=== PATIENT | female | born 1990 | race Caucasian/White ===

== ENCOUNTER 2020-05-20 18:26 | Outpatient (CLI) | payer OTHER ==
[~2020-05-20] VITALS: Ht 147.3 cm; Wt 64.0 kg
[2020-05-20 19:31] LABS: ALANINE AMINOTRANSFERASE 15 U/L (12-78); ALBUMIN 2.6 g/dL (3.4-5.0); ANION GAP 10 mmol/L (5-15); CALCIUM 8.5 mg/dL (8.5-10.1); CHLORIDE 108 mmol/L (98-107)
[2020-05-20 19:31] LABS: MICROSCOPIC INDICATED
[2020-05-20 19:34] LABS: ALKALINE PHOSPHATASE 194 U/L (45-117); BILIRUBIN,TOTAL 0.3 mg/dL (0.2-1.0); TOTAL PROTEIN 6.6 g/dL (6.4-8.2)
[2020-05-20 19:35] LABS: BILIRUBIN, DIRECT < 0.1 mg/dL (0.1-0.2)
[2020-05-20 19:36] LABS: CREATININE,URINE RANDOM 70.4 mg/dL
[2020-05-20 19:43] LABS: BASOPHILS % (AUTO) 0 % (0-1); EOSINOPHILS % (AUTO) 0 % (1-7); LYMPHOCYTES % (AUTO) 25 % (22-44); MEAN CORPUSCULAR HGB CONC 33.6 g/dL (32.4-35.8); MEAN PLATELET VOLUME 8.9 fL (7.4-10.4); MONOCYTES % (AUTO) 8 % (2-9); NEUTROPHILS % (AUTO) 66 % (42-75); PLATELET COUNT 266 x10^3/uL (130-400); RED BLOOD COUNT 3.96 x10^6/uL (3.82-5.3); RED CELL DISTRIBUTION WIDTH 14.7 % (9.6-15.2)
[2020-05-20 19:44] LABS: MD NO
== END 2020-05-20 20:05 | disposition home or self-care (01) ==
LOC: LDOP 18:26
PROVIDERS: ATTEND Obstetrics & Gynecology
DX: O16.3 Unspecified maternal hypertension, third trimester (principal); Z3A.36 36 weeks gestation of pregnancy
CPT/HCPCS: 36415; 59025; 80053; 81001; 82248; 82570; 84156; 84550; 85025

== ENCOUNTER 2020-05-26 03:15 | Outpatient (CLI) | payer OTHER ==
[2020-05-26 04:26] LABS: MICROSCOPIC INDICATED
[2020-05-26 04:36] LABS: BASOPHILS % (AUTO) 0 % (0-1); EOSINOPHILS % (AUTO) 0 % (1-7); LYMPHOCYTES % (AUTO) 30 % (22-44); MEAN CORPUSCULAR HEMOGLOBIN 26.8 pg (27.0-34.8); MEAN CORPUSCULAR HGB CONC 33.5 g/dL (32.4-35.8); MEAN PLATELET VOLUME 8.7 fL (7.4-10.4); MONOCYTES % (AUTO) 8 % (2-9); NEUTROPHILS % (AUTO) 62 % (42-75); PLATELET COUNT 244 x10^3/uL (130-400); RED BLOOD COUNT 3.91 x10^6/uL (3.82-5.3)
[2020-05-26 04:37] LABS: MD NO
[2020-05-26 04:46] LABS: ALANINE AMINOTRANSFERASE 13 U/L (12-78); ALBUMIN 2.4 g/dL (3.4-5.0); ANION GAP 10 mmol/L (5-15); BILIRUBIN, DIRECT 0.1 mg/dL (0.1-0.2); CHLORIDE 109 mmol/L (98-107); CREATININE 0.76 mg/dL (0.55-1.02)
[2020-05-26 04:48] LABS: ALKALINE PHOSPHATASE 193 U/L (45-117); BILIRUBIN,TOTAL 0.3 mg/dL (0.2-1.0); TOTAL PROTEIN 6.1 g/dL (6.4-8.2)
== END 2020-05-26 05:20 | disposition home or self-care (01) ==
LOC: LDOP 03:15
PROVIDERS: ATTEND Obstetrics & Gynecology
DX: O26.893 Other specified pregnancy related conditions, third trimester (principal); R10.9 Unspecified abdominal pain; Z3A.37 37 weeks gestation of pregnancy
CPT/HCPCS: 36415; 59025; 80053; 81001; 82248; 82570; 84156; 84550; 85025; 86850; 86900

== ENCOUNTER 2020-05-27 19:12 | Inpatient (IN) | payer OTHER ==
[~2020-05-27] VITALS: Ht 148.6 cm; Wt 67.0 kg
[2020-05-27] MEDS ORDERED: TERBUTALINE 1 MG/ML, 1ML SQ PRN (22:00)
[2020-05-27] MEDS ORDERED: FENTANYL PF 100 MCG/2ML IVPush PRN (22:00)
[2020-05-27] MEDS ORDERED: METOCLOPRAMIDE 5 MG/ML, 2ML IVPush PRN (22:00)
[2020-05-27] MEDS ORDERED: OXYTOCIN 30U/ 0.9% NaCL 500ML 500 ML IV ONE (22:00)
[2020-05-27] MEDS ORDERED: FENTANYL PF 100 MCG/2ML IV PRN (22:00)
[2020-05-27] MEDS ORDERED: TERBUTALINE 1 MG/ML, 1ML IVPush PRN (22:00)
[2020-05-27] MEDS ORDERED: ONDANSETRON 2MG/ML, 2ML IVPush PRN (22:00)
[2020-05-27] MEDS ORDERED: OXYTOCIN 30U/ 0.9% NaCL 500ML 500 ML IV PRN (22:00)
[2020-05-27] MEDS ORDERED: SODIUM CITRATE/CITRIC ACID 30 ML UDC PO PRN (22:00)
[2020-05-27] MEDS: D5%-LACTATED RINGERS 1,000 ML IV SCH (22:00)
[2020-05-27] MEDS: LACTATED RINGERS 1,000 ML IV SCH (22:15)
[2020-05-27] MEDS ORDERED: FENTANYL PF 100 MCG/2ML ONE (22:19)
[2020-05-27 22:29] LABS: BASOPHILS % (AUTO) 1 % (0-1); EOSINOPHILS % (AUTO) 0 % (1-7); LYMPHOCYTES % (AUTO) 21 % (22-44); MEAN CORPUSCULAR HEMOGLOBIN 26.3 pg (27.0-34.8); MEAN PLATELET VOLUME 8.8 fL (7.4-10.4); MONOCYTES % (AUTO) 7 % (2-9); NEUTROPHILS % (AUTO) 71 % (42-75); PLATELET COUNT 277 x10^3/uL (130-400); RED BLOOD COUNT 4.04 x10^6/uL (3.82-5.3); RED CELL DISTRIBUTION WIDTH 15.1 % (9.6-15.2)
[2020-05-27] MEDS ORDERED: CEFTRIAXONE PMX 1GM/50ML 50 ML IV ONE (22:30)
[2020-05-27 22:34] LABS: MD NO
[2020-05-27 22:38] LABS: ALANINE AMINOTRANSFERASE 15 U/L (12-78); ALBUMIN 2.5 g/dL (3.4-5.0); ANION GAP 11 mmol/L (5-15); CALCIUM 7.9 mg/dL (8.5-10.1); CHLORIDE 109 mmol/L (98-107); CREATININE 0.77 mg/dL (0.55-1.02)
[2020-05-27 22:41] LABS: ALKALINE PHOSPHATASE 203 U/L (45-117); BILIRUBIN, DIRECT < 0.1 mg/dL (0.1-0.2); BILIRUBIN,TOTAL 0.2 mg/dL (0.2-1.0); TOTAL PROTEIN 6.3 g/dL (6.4-8.2)
[2020-05-27 23:33] LABS: MICROSCOPIC INDICATED
[2020-05-27 23:41] LABS: CREATININE,URINE RANDOM 56.2 mg/dL
[2020-05-28] MEDS ORDERED: FENTANYL/BUPIV./NS/PF 250 ML EPIDCONT ONE (01:14)
[2020-05-28] MEDS ORDERED: BUPIVACAINE 0.25% ONE (01:14)
[2020-05-28] MEDS ORDERED: NALOXONE 0.4 MG/ML, 1ML IVPush PRN (01:30)
[2020-05-28] MEDS ORDERED: FENTANYL/BUPIV./NS/PF 250 ML EPIDCONT SCH (01:30)
[2020-05-28] MEDS ORDERED: LACTATED RINGERS 1,000 ML IVBOLUS PRN (01:30)
[2020-05-28] MEDS ORDERED: EPHEDRINE 50 MG/ML, 1ML IVPush PRN (01:30)
[2020-05-28] MEDS ORDERED: LACTATED RINGERS 1,000 ML IV SCH (01:30)
[2020-05-28] MEDS ORDERED: NEWBORN KIT ONE (03:04)
[2020-05-28] MEDS ORDERED: OXYTOCIN 30U/ 0.9% NaCL 500ML 500 ML ONE (03:06)
[2020-05-28] MEDS ORDERED: MISOPROSTOL 200 MCG TABLET ONE (03:23)
[2020-05-28] MEDS ORDERED: LIDOCAINE 1%, 20ML ONE (03:24)
[2020-05-28] MEDS ORDERED: OXYcodone/APAP 10/325MG TABLET ONE (05:18)
[2020-05-28] MEDS: OXYcodone IR 5MG TABLET PO PRN ×2 (05:28→15:45)
[2020-05-28] MEDS: ACETAMINOPHEN 325 MG TABLET PO PRN ×2 (05:29→15:44)
[2020-05-28] MEDS ORDERED: DOCUSATE 100 MG CAPSULE PO PRN (05:30)
[2020-05-28] MEDS: OXYTOCIN 30U/ 0.9% NaCL 500ML 500 ML IV SCH ×2 (05:30→15:30)
[2020-05-28] MEDS ORDERED: SIMETHICONE 80 MG CHEW TAB PO PRN (05:30)
[2020-05-28] MEDS ORDERED: ONDANSETRON 2MG/ML, 2ML IV PRN (05:30)
[2020-05-28] MEDS: D5%-LACTATED RINGERS 1,000 ML IV SCH (06:00)
[2020-05-28] MEDS: LACTATED RINGERS 1,000 ML IV SCH (06:00)
[2020-05-28 08:30] VITALS: BP 116/78
[2020-05-28] MEDS: PRENATAL VIT/IRON/FA 1 EACH TABLET PO SCH (09:00)
[2020-05-28 12:00] VITALS: BP 116/72
[2020-05-28 13:06] LABS: BASOPHILS % (AUTO) 0 % (0-1); EOSINOPHILS % (AUTO) 0 % (1-7); LYMPHOCYTES % (AUTO) 9 % (22-44); MEAN CORPUSCULAR HEMOGLOBIN 26.2 pg (27.0-34.8); MEAN CORPUSCULAR HGB CONC 32.6 g/dL (32.4-35.8); MEAN PLATELET VOLUME 8.6 fL (7.4-10.4); MONOCYTES % (AUTO) 5 % (2-9); NEUTROPHILS % (AUTO) 85 % (42-75); PLATELET COUNT 237 x10^3/uL (130-400); RED BLOOD COUNT 3.69 x10^6/uL (3.82-5.3); RED CELL DISTRIBUTION WIDTH 15.3 % (9.6-15.2)
[2020-05-28 13:34] LABS: MD SCAN
[2020-05-28] MEDS: IBUPROFEN 600 MG TABLET PO PRN (15:44)
[2020-05-28 19:37] VITALS: BP 131/87
[2020-05-28 23:44] VITALS: BP 123/78
[2020-05-29] MEDS: IBUPROFEN 600 MG TABLET PO PRN (03:57)
[2020-05-29] MEDS: OXYcodone IR 5MG TABLET PO PRN ×2 (03:59→08:12)
[2020-05-29 04:03] VITALS: BP 123/73
[2020-05-29 07:20] VITALS: BP 137/78
[2020-05-29] MEDS: PRENATAL VIT/IRON/FA 1 EACH TABLET PO SCH (08:11)
[2020-05-29] MEDS: ACETAMINOPHEN 325 MG TABLET PO PRN (08:11)
[2020-05-29] MEDS ORDERED: DOCU-131 PO (09:25)
[2020-05-29] MEDS ORDERED: IBUP-1223 PO (09:25)
[2020-05-29] MEDS ORDERED: PREN1TAB60 PO (09:25)
== END 2020-05-29 12:30 | disposition home or self-care (01) | DRG 807 ==
LOC: LDOP 19:12 → LDIP 21:49 → 2NW 05-28 07:35
PROVIDERS: ADMIT Obstetrics & Gynecology; ATTEND Obstetrics & Gynecology
PROC: 10E0XZZ Delivery of Products of Conception, External Approach (ICD-10-PCS; principal; 2020-05-28)
PROC: 0UQKXZZ Repair Hymen, External Approach (ICD-10-PCS; 2020-05-28)
PROC: 3E0R3BZ Introduction of Anesthetic Agent into Spinal Canal, Percutaneous Approach (ICD-10-PCS; 2020-05-28)
PROC: 00HU33Z Insertion of Infusion Device into Spinal Canal, Percutaneous Approach (ICD-10-PCS; 2020-05-28)
DX: O23.43 Unspecified infection of urinary tract in pregnancy, third trimester (principal); Z37.0 Single live birth; O13.4 Gestational [pregnancy-induced] hypertension without significant proteinuria, complicating childbirth; O14.04 Mild to moderate pre-eclampsia, complicating childbirth; O69.81X0 Labor and delivery complicated by cord around neck, without compression, not applicable or unspecified; O76 Abnormality in fetal heart rate and rhythm complicating labor and delivery; Z20.822 Contact with and (suspected) exposure to COVID-19; O70.0 First degree perineal laceration during delivery; Z3A.37 37 weeks gestation of pregnancy
CPT/HCPCS: 36415; 80053; 81001; 82248; 82570; 84156; 84550; 85025; 86592; 86850; 86900; 87635; G0378; J0696; J3010; J7120

== ENCOUNTER 2020-06-03 21:21 | Emergency (ER) | payer OTHER ==
[~2020-06-03] VITALS: Ht 147.3 cm; Wt 62.0 kg
[~2020-06-03 21:21] MED LIST: DOCU-131 PO; IBUP-1223 PO; PREN1TAB60 PO
--- NOTE | 2020-06-03 21:52 | NUR ---
Pt to ER with c/o being 6 days , having nightly episodes of HTN, feelings of vertigo, and not feeling herself. Pt states having normal , no issues at . Pt states her labs where off just prior to . EKG done in triage. Pt on monitor, mom at bedside. Will monitor.
--- NOTE | 2020-06-03 22:13 | NUR ---
Pt to [facility] indp. Tolerated well, no changes. Pt back in room. On monitor. Warm blanket given. Urine sent to lab.
[2020-06-03 22:23] LABS: BASOPHILS % (AUTO) 1 % (0-1); EOSINOPHILS % (AUTO) 1 % (1-7); LYMPHOCYTES % (AUTO) 30 % (22-44); MEAN CORPUSCULAR HEMOGLOBIN 26.5 pg (27.0-34.8); MEAN CORPUSCULAR HGB CONC 32.9 g/dL (32.4-35.8); MEAN PLATELET VOLUME 7.6 fL (7.4-10.4); MONOCYTES % (AUTO) 8 % (2-9); NEUTROPHILS % (AUTO) 61 % (42-75); PLATELET COUNT 348 x10^3/uL (130-400); RED BLOOD COUNT 4.21 x10^6/uL (3.82-5.3); RED CELL DISTRIBUTION WIDTH 16.1 % (9.6-15.2)
[2020-06-03 22:24] LABS: MD NO
[2020-06-03 22:25] LABS: MICROSCOPIC AUTO
[2020-06-03 22:35] LABS: ALANINE AMINOTRANSFERASE 44 U/L (12-78); ANION GAP 7 mmol/L (5-15); CALCIUM 8.4 mg/dL (8.5-10.1); CHLORIDE 109 mmol/L (98-107); CREATININE 0.82 mg/dL (0.55-1.02)
[2020-06-03 22:37] LABS: ALKALINE PHOSPHATASE 145 U/L (45-117); BILIRUBIN,TOTAL 0.3 mg/dL (0.2-1.0)
[2020-06-04] MEDS ORDERED: LABETALOL 100 MG TABLET PO ONE
[2020-06-04 00:18] VITALS: BP 154/96
--- NOTE | 2020-06-04 00:20 | NUR ---
Pt medicated per order. Dose double checked with provider and ok. Pt calm in room. No changes. Will monitor.
--- NOTE | 2020-06-04 00:40 | NUR ---
Patient/Caregiver given discharge instructions and they have confirmed that they understand the instructions. Patient ambulatory with steady gait. Rx reviewed with patient with understanding stated. pt to f/u with OB tomorrow. Pt home with mom.
== END 2020-06-04 00:43 | disposition home or self-care (01) ==
LOC: ED 21:51
DX: O14.05 Mild to moderate pre-eclampsia, complicating the puerperium (principal); R51.9 Headache, unspecified; R42 Dizziness and giddiness; R94.31 Abnormal electrocardiogram [ECG] [EKG]
CPT/HCPCS: 36415; 80053; 81001; 85025; 87086; 93005; 99284